=== PATIENT | male | born 1995 | race Caucasian/White ===

== ENCOUNTER 2017-04-07 09:49 | Emergency (ER) | payer OTHER | END 2017-04-07 13:00 | disposition home or self-care (01) | LOC: FTE 09:49 | DX: R07.9 Chest pain, unspecified (principal); Z11.3 Encounter for screening for infections with a predominantly sexual mode of transmission | CPT/HCPCS: 71045; 87591; 93005; 99284-25 ==

== ENCOUNTER 2017-04-11 08:33 | Emergency (ER) | payer OTHER | END 2017-04-11 10:18 | disposition home or self-care (01) | LOC: FTE 08:33 | DX: K29.70 Gastritis, unspecified, without bleeding (principal); N48.1 Balanitis | CPT/HCPCS: 99283; Z7502 ==

== ENCOUNTER 2017-09-21 15:43 | Emergency (ER) | payer OTHER ==
[2017-09-21] MEDS: LIDOCAINE/MYLANTA 40 ML BTL PO (16:38)
== END 2017-09-21 20:25 | disposition home or self-care (01) ==
LOC: FTE 15:43
DX: R07.9 Chest pain, unspecified (principal)
CPT/HCPCS: 71046; 93005; 99284-25

== ENCOUNTER 2017-10-24 08:27 | Emergency (ER) | payer OTHER | END 2017-10-24 09:43 | disposition home or self-care (01) | LOC: FTE 08:27 | DX: J40 Bronchitis, not specified as acute or chronic (principal) | CPT/HCPCS: 71046; 99283-25 ==

== ENCOUNTER 2018-03-17 23:39 | Emergency (ER) | payer OTHER | END 2018-03-18 01:10 | disposition home or self-care (01) | LOC: E/R 23:39 | DX: R07.9 Chest pain, unspecified (principal) | CPT/HCPCS: 71045; 93005; 99284-25 ==

== ENCOUNTER 2018-07-10 11:31 | Emergency (ER) | payer OTHER ==
[2018-07-10 14:14] LABS: UR MUCUS MODERATE /HPF (NONE SEEN); UR RBC 1 /HPF (0-5); UR WBC 3 /HPF (0-5)
[2018-07-10 14:15] LABS: ADD UMIC NO; UR ASCORBIC ACID NEGATIVE (NEGATIVE); UR BILIRUBIN (Dip) NEGATIVE (NEGATIVE); UR BLOOD (Dip) NEGATIVE (NEGATIVE); UR CLARITY SLIGHTLY CLOUDY (CLEAR); UR COLOR YELLOW (YELLOW); UR GLUCOSE (Dip) NEGATIVE (NEGATIVE); UR KETONES (Dip) TRACE mg/dL (NEGATIVE); UR LEUKOCYTE ESTERASE (Dip) NEGATIVE Leu/ul (NEGATIVE); UR NITRITE (Dip) NEGATIVE (NEGATIVE); UR SPECIFIC GRAVITY (Dip) 1.029 (1.003-1.030); UR TOTAL PROTEIN (Dip) NEGATIVE (NEGATIVE); UR UROBILINOGEN (Dip) NEGATIVE (NEGATIVE)
== END 2018-07-10 15:57 | disposition home or self-care (01) ==
LOC: FTE 11:31
DX: N48.1 Balanitis (principal)
CPT/HCPCS: 81001; 81003; 87086; 99283